=== PATIENT | male | born 1995 | race Native Hawaiian/Other Pacific Islander ===

== ENCOUNTER 2016-04-13 12:03 | Emergency (ER) | payer OTHER ==
[~2016-04-13] VITALS: Ht 175.3 cm; Wt 68.0 kg
[2016-04-13 12:21] VITALS: BP 147/76
--- NOTE | 2016-04-13 13:39 | NUR ---
Patient ambulated to bed 7. RN evaluating patient at bedside.
--- NOTE | 2016-04-13 13:42 | NUR ---
Dr. Carroll evaluating patient at bedside.
--- NOTE | 2016-04-13 13:45 | NUR ---
PT PRESENTS TO ER W/C/O SORE THROAT AND RIGHT EAR PAIN X3 DAYS. HX HEMOPHILIA; DENIES N/V/D; SKIN IS PINK/WARM/DRY; AAOX4 WITH EVEN AND STEADY GAIT; LUNGS CLEAR BL; HR EVEN AND REGULAR; PT DENIES ANY FEVER, CP, OR SOB AT THIS TIME; PATIENT STATES PAIN OF 5/10 AT THIS TIME; VSS; PATIENT POSITIONED FOR COMFORT; HOB ELEVATED; BEDRAILS UP X2; BED DOWN. ER MD MADE AWARE OF PT STATUS.
[2016-04-13 14:00] VITALS: BP 137/91
--- NOTE | 2016-04-13 14:00 | NUR ---
Patient discharged with v/s stable. Written and verbal after care instructions given and explained. Patient alert, oriented and verbalized understanding of instructions. Ambulatory with steady gait. All questions addressed prior to discharge. ID band removed. Patient advised to follow up with PMD. Rx of TYLENOL, AMOXICILLIN given. Patient educated on indication of medication including possible reaction and side effects. Opportunity to ask questions provided and answered.
== END 2016-04-13 14:00 | disposition home or self-care (01) ==
LOC: MED 12:03
DX: J02.9 Acute pharyngitis, unspecified (principal); R03.0 Elevated blood-pressure reading, without diagnosis of hypertension; H92.01 Otalgia, right ear